=== PATIENT | female | born 1985 | race African-American/Black ===

== ENCOUNTER 2018-01-13 21:03 | Emergency (ER) | payer BC, MEDICAID ==
[~2018-01-13] VITALS: Ht 175.3 cm; Wt 90.7 kg
[2018-01-13 21:13] VITALS: BP 148/79
[2018-01-13] MEDS ORDERED: cefTRIAXone SOD 1,000 MG VL ONE (22:39)
[2018-01-13] MEDS ORDERED: cefTRIAXone W LIDOCAINE 1 GM IM IM ONE (22:45)
[2018-01-13] MEDS ORDERED: HYDROcodone-ACET 10/325MG TAB PO ONE (23:00)
== END 2018-01-13 23:15 | disposition home or self-care (01) ==
LOC: ER 21:03
DX: L73.9 Follicular disorder, unspecified (principal)
CPT/HCPCS: 96372; 99283; J0696

== ENCOUNTER 2019-04-24 20:58 | Emergency (ER) | payer MEDICAID ==
[~2019-04-24] VITALS: Ht 175.3 cm; Wt 98.4 kg
[2019-04-25] MEDS ORDERED: SUMAtriptan SUCCINATE 6 MG/0.5 ML VL SC ONE (00:45)
[2019-04-25] MEDS ORDERED: PROMETHAZINE HCL 25 MG/ML 1ML IM ONE (00:45)
[2019-04-25] MEDS ORDERED: ONDANSETRON HCL 4 MG/2 ML VIAL IM ONE (01:15)
[2019-04-25] MEDS ORDERED: BUTORPHANOL TARTRATE 2 MG/1 ML VIAL IV ONE (03:45)
[2019-04-25] MEDS ORDERED: SODIUM CHLORIDE 0.9% 2,000 ML IV ONE (03:45)
[2019-04-25 04:35] VITALS: BP 101/43
== END 2019-04-25 05:49 | disposition home or self-care (01) ==
LOC: ER 21:00
DX: G43.909 Migraine, unspecified, not intractable, without status migrainosus (principal); E86.0 Dehydration
CPT/HCPCS: 70450; 94761; 96361; 96372; 96374; 99284; J0595; J2405; J2550; J3030; J7030